=== PATIENT | male | born 1955 | race Caucasian/White ===

== ENCOUNTER 2016-11-10 23:44 | Inpatient (IN) | payer OTHER ==
[~2016-11-10] VITALS: Ht 172.7 cm; Wt 79.0 kg
[2016-11-11] MEDS ORDERED: FAMO10TA77 PO (00:13)
[2016-11-11] MEDS ORDERED: HYDR-3144 PO (00:13)
[2016-11-11 00:14] VITALS: BP 124/75
[2016-11-11 00:56] VITALS: BP 124/75
[2016-11-11] MEDS ORDERED: NS + 20MEQ KCL 1,000 ML IV SCH (00:57)
[2016-11-11] MEDS ORDERED: ONDANSETRON 2MG/ML, 2ML IVP PRN (01:00)
[2016-11-11] MEDS ORDERED: BISACODYL 10 MG SUPP PR PRN (01:00)
[2016-11-11] MEDS ORDERED: MORPHINE SULFATE 4 MG/ML, 1ML IVPush PRN (01:00)
[2016-11-11] MEDS ORDERED: POLYETHYLENE GLYCOL 17 GM PACKET PO PRN (01:00)
[2016-11-11] MEDS ORDERED: ENOXAPARIN 40 MG/0.4 ML SQ SCH (01:00)
[2016-11-11] MEDS ORDERED: TRAZODONE 50MG TABLET PO PRN (01:00)
[2016-11-11] MEDS ORDERED: DOCUSATE 100 MG CAPSULE PO PRN (01:00)
[2016-11-11] MEDS ORDERED: NITROGLYCERIN 0.4 MG BOTTLE (25 TABS) SL PRN (01:00)
[2016-11-11] MEDS ORDERED: LABETALOL 5MG/ML, 20ML IV PRN (01:00)
[2016-11-11] MEDS ORDERED: HYDROcodone/APAP 10/325 MG TABLET ONE (01:15)
[2016-11-11] MEDS: SODIUM CHLORIDE 0.9% 1,000 ML IV SCH ×4 (01:20→23:44)
[2016-11-11] MEDS: HYDROcodone/APAP 10/325 MG TABLET PO PRN ×4 (01:20→20:06)
[2016-11-11] MEDS ORDERED: HEPARIN 25,000 UNITS/500ML PMX 500 ML IV PRN (01:30)
[2016-11-11] MEDS ORDERED: HEPARIN 5,000 UNITS/ML, 1ML IV ONE (01:30)
[2016-11-11] MEDS ORDERED: HYDROcodone/APAP 10/325 MG TABLET PO PRN (01:30)
[2016-11-11] MEDS ORDERED: CLOPIDOGREL 300 MG TABLET PO ONE (01:30)
[2016-11-11] MEDS: HEPARIN 5,000 UNITS/ML, 1ML IV PRN ×2 (02:08→09:05)
[2016-11-11 04:06] VITALS: BP 96/64
[2016-11-11] MEDS: METOPROLOL TARTRATE 25 MG TABLET PO SCH ×2 (05:43→17:07)
[2016-11-11 06:27] LABS: HEMOGLOBIN 12.1 g/dL (13.7-18.0)
[2016-11-11 06:41] LABS: ASPARTATE AMINO TRANSFERASE 121 U/L (15-37); BLOOD UREA NITROGEN 10 mg/dL (7-18)
[2016-11-11 07:17] LABS: IS PT STATUS REG ER OR PRE ER? NO
[2016-11-11] MEDS ORDERED: FAMOTIDINE 20 MG/2 ML IV SCH (09:00)
[2016-11-11] MEDS: FAMOTIDINE 40 MG TABLET PO SCH (09:06)
[2016-11-11] MEDS: ASPIRIN 81 MG TABLET CHEW PO SCH (09:06)
[2016-11-11] MEDS ORDERED: SODIUM CHLORIDE 0.9% 1,000 ML IV ONE (12:31)
[2016-11-11] MEDS ORDERED: BIVALIRUDIN 250 MG ONE (13:06)
[2016-11-11] MEDS ORDERED: FENTANYL PF 100 MCG/2ML ONE ×2 (13:06→13:08)
[2016-11-11] MEDS ORDERED: MIDAZOLAM 1 MG/ML, 5ML ONE ×2 (13:06→13:08)
[2016-11-11] MEDS ORDERED: HEPARIN 1,000 UNITS/ML, 10ML ONE (13:06)
[2016-11-11] MEDS ORDERED: VERAPAMIL 2.5 MG/ML, 2ML ONE ×2 (13:06→13:08)
[2016-11-11] MEDS ORDERED: LIDOCAINE 2%, 20ML ONE (13:06)
[2016-11-11] MEDS ORDERED: TICAGRELOR 90 MG TABLET ONE (13:08)
[2016-11-11] MEDS ORDERED: PRASUGREL 10 MG TABLET ONE (14:02)
[2016-11-11] MEDS ORDERED: BIVALIRUDIN 250 MG in DEXTROSE 5% 50 ML IV SCH (14:16)
[2016-11-11] MEDS: ATORVASTATIN 80 MG TABLET PO SCH (20:06)
[2016-11-12] MEDS: HYDROcodone/APAP 10/325 MG TABLET PO PRN ×3 (03:28→20:02)
[2016-11-12 04:09] VITALS: BP 111/83
[2016-11-12 04:25] LABS: HEMOGLOBIN 11.5 g/dL (13.7-18.0)
[2016-11-12 04:36] LABS: BLOOD UREA NITROGEN 9 mg/dL (7-18)
[2016-11-12 08:00] VITALS: BP 101/59
[2016-11-12] MEDS: FAMOTIDINE 40 MG TABLET PO SCH (08:46)
[2016-11-12] MEDS: METOPROLOL TARTRATE 25 MG TABLET PO SCH ×2 (08:46→18:14)
[2016-11-12] MEDS: ASPIRIN 81 MG TABLET CHEW PO SCH (08:46)
[2016-11-12] MEDS: PRASUGREL 10 MG TABLET PO SCH (08:46)
[2016-11-12] MEDS ORDERED: CLOPIDOGREL 75 MG TABLET PO SCH (09:00)
[2016-11-12 10:20] VITALS: BP 126/87
[2016-11-12] MEDS: SODIUM CHLORIDE 0.9% 1,000 ML IV SCH ×2 (10:22→17:00)
[2016-11-12 10:57] LABS: IS PT STATUS REG ER OR PRE ER? NO
[2016-11-12 12:56] VITALS: BP 111/68
[2016-11-12 18:13] VITALS: BP 115/77
[2016-11-12 19:57] VITALS: BP 114/72
[2016-11-12] MEDS: ATORVASTATIN 80 MG TABLET PO SCH (20:47)
[2016-11-13] MEDS: SODIUM CHLORIDE 0.9% 1,000 ML IV SCH ×2 (01:30→09:05)
[2016-11-13 03:00] VITALS: BP 111/69
[2016-11-13] MEDS: HYDROcodone/APAP 10/325 MG TABLET PO PRN ×2 (04:21→11:55)
[2016-11-13] MEDS: METOPROLOL TARTRATE 25 MG TABLET PO SCH (05:21)
[2016-11-13 06:02] LABS: HEMOGLOBIN 11.8 g/dL (13.7-18.0)
[2016-11-13 06:26] LABS: BLOOD UREA NITROGEN 10 mg/dL (7-18)
[2016-11-13 07:33] VITALS: BP 106/73
[2016-11-13] MEDS: FAMOTIDINE 40 MG TABLET PO SCH (09:00)
[2016-11-13] MEDS: ASPIRIN 81 MG TABLET CHEW PO SCH (09:04)
[2016-11-13] MEDS: PRASUGREL 10 MG TABLET PO SCH (09:04)
[2016-11-13] MEDS ORDERED: ASPI-515 PO (10:55)
[2016-11-13] MEDS ORDERED: PRAS10TA4 PO (10:55)
[2016-11-13] MEDS ORDERED: ATOR80TA75 PO (10:55)
[2016-11-13] MEDS ORDERED: METO25TA35 PO (10:55)
[2016-11-13] MEDS ORDERED: POTASSIUM CHLORIDE 20 MEQ TAB.ER.PRT PO ONE (11:00)
== END 2016-11-13 13:28 | disposition home or self-care (01) | DRG 247 ==
LOC: CCU 23:52 → 5SO 11-12 10:53 → DCLOUNGE 11-13 12:54
PROVIDERS: ADMIT Internal Medicine; ATTEND Internal Medicine
PROC: 027034Z Dilation of Coronary Artery, One Artery with Drug-eluting Intraluminal Device, Percutaneous Approach (ICD-10-PCS; principal; 2016-11-11)
PROC: 4A023N7 Measurement of Cardiac Sampling and Pressure, Left Heart, Percutaneous Approach (ICD-10-PCS; 2016-11-11)
PROC: B2111ZZ Fluoroscopy of Multiple Coronary Arteries using Low Osmolar Contrast (ICD-10-PCS; 2016-11-11)
PROC: B2151ZZ Fluoroscopy of Left Heart using Low Osmolar Contrast (ICD-10-PCS; 2016-11-11)
DX: I21.19 ST elevation (STEMI) myocardial infarction involving other coronary artery of inferior wall (principal); I50.20 Unspecified systolic (congestive) heart failure; E78.5 Hyperlipidemia, unspecified; I25.10 Atherosclerotic heart disease of native coronary artery without angina pectoris; E87.6 Hypokalemia; Z86.73 Personal history of transient ischemic attack (TIA), and cerebral infarction without residual deficits
CPT/HCPCS: 36415; 80048; 80053; 80061; 82040; 83735; 83880; 84484; 85014; 85018; 85025; 85520; 85610; 87081; 93005; 93306; 93458; C1894; C9600; J0583; J1644; J2250; J3010; J3490; C1725; C1769; C1874; C1887; J7030; Q9967